=== PATIENT | female | born 1965 | race African-American/Black ===

== ENCOUNTER 2016-12-11 14:04 | Observation (INO) | payer OTHER ==
[~2016-12-11] VITALS: Ht 167.6 cm; Wt 65.0 kg
[~2016-12-11 14:04] MED LIST: FERR324T4 PO; HYDR10SO PO; NORE1TAB60 PO
[2016-12-11 14:06] VITALS: BP 182/87; PULSE 95; RESP 20; TEMP 98.1; O2SAT 99
[2016-12-11] MEDS ORDERED: FERR325T PO (14:42)
[2016-12-11] MEDS ORDERED: DOXY1CAP74 PO (14:42)
[2016-12-11] MEDS ORDERED: SODIUM CHLOR 0.9% 1000 ML INJ 1,000 ML IV SCH (14:56)
[2016-12-11] MEDS ORDERED: SODIUM CHLORIDE 0.9% FLUSH 5 ML FLUSH IVF PRN (15:00)
[2016-12-11 15:38] LABS: AUTOMATED NEUTROPHIL # 10.9 TH/MM3 (1.8-7.7); BASOPHIL # 0.1 TH/MM3 (0-0.2); BASOPHIL % 0.7 % (0.0-2.0); EOSINOPHIL # 0.3 TH/MM3 (0-0.4); EOSINOPHIL % 2.2 % (0.0-4.0); HEMATOCRIT 29.3 % (35.0-46.0); LYMPH % 15.2 % (9.0-44.0); LYMPHOCYTE # 2.1 TH/MM3 (1.0-4.8); MEAN CELL VOLUME 75.5 FL (80.0-100.0); MEAN CORPUSCULAR HEMOGLOBIN 21.9 PG (27.0-34.0); MONO % 3.9 % (0.0-8.0); PLATELET COUNT 421 TH/MM3 (150-450); RED BLOOD COUNT 3.88 MIL/MM3 (4.00-5.30); RED CELL DISTRIBUTION WIDTH 22.2 % (11.6-17.2); WHITE BLOOD COUNT 13.9 TH/MM3 (4.0-11.0)
[2016-12-11 15:41] LABS: HEMO FLAGS AUTO DIFF
[2016-12-11 16:02] LABS: APTT (PATIENT) 24.9 SEC (24.3-30.1); INTERNATIONAL NORMALIZED RATIO 0.9 RATIO; PROTHROMBIN TIME - PATIENT 10.1 SEC (9.8-11.6)
[2016-12-11 16:03] LABS: ANION GAP 8 MEQ/L (5-15); BICARBONATE 22.7 MEQ/L (21.0-32.0); BLOOD UREA NITROGEN 9 MG/DL (7-18); CHLORIDE 107 MEQ/L (98-107); GLOMERULAR FILTRATION RATE 85 ML/MIN (>89); POTASSIUM 3.2 MEQ/L (3.5-5.1); SODIUM (NA) 138 MEQ/L (136-145)
[2016-12-11 16:06] LABS: ALKALINE PHOSPHATASE 60 U/L (45-117); ALT (GPT) 12 U/L (10-53); AST (GOT) 17 U/L (15-37); TOTAL BILIRUBIN ADULT 0.2 MG/DL (0.2-1.0)
[2016-12-11 16:25] LABS: PLATELET ESTIMATE SMEAR HIGH (NORMAL); PLATELET MORPHOLOGY NORMAL (NORMAL); SCAN/DIFF AUTO DIFF CONFIRMED
[2016-12-11 16:41] LABS: BLOOD, URINE MOD (NEG); COMMENT (UR) CULT NOT INDICATED; CULTURE IF INDICATED CULT NOT INDICATED; GLUCOSE,URINE NEG (NEG); KETONE, URINE 10 mg/dL (NEG); MUCUS URINE FEW /lpf (OCC); NITRITE,URINE NEG (NEG); PH, URINE 5.5 (5.0-8.5)
[2016-12-11 16:45] LABS: URINE COLOR RED (YELLW/STRAW)
[2016-12-11] MEDS ORDERED: SODIUM CHLOR 0.9% 1000 ML INJ 1,000 ML IV ONE (18:00)
--- NOTE | 2016-12-11 18:31 | PD ---
HPI Chief Complaint: Bleeding Time Seen by Provider: 14:43 Travel History International Travel<30 days: No Contact w/Intl Traveler<30days: No Traveled to known affect area: No History of Present Illness HPI Patient is a 51-year-old female presents to the emergency department for complaints of vaginal bleeding as well as dizziness and weakness. Patient states that having bleeding for at least the past week which is been fairly heavy. She is followed intermittently with Dr. Brennan in the past and states that she did receive a letter from him saying she was given be discharged in the practice and she is upset about because apparently she missed an appointment because she was in the hospital. In saturating 6-8 pads per day. She does have a history of being admitted to this hospital in the past for hemoglobin before requiring transfusions. She also has a history of uterine fibroids which are quite sizable. She denies any abdominal pain nausea vomiting diarrhea dysuria. States symptoms gradually worsening. She has had a Depo-Provera shot at home which is not working. [facility] Past Medical History Anemia: Yes Anxiety: No Depression: Yes Cancer: No Cardiovascular Problems: No Diminished Hearing: No Endocrine: No Genitourinary: No Musculoskeletal: Yes Neurologic: No Psychiatric: No Reproductive: No Respiratory: No Tetanus Vaccination: > 5 Years ?: Not LMP: : 4 Para: 4 Miscarriage: 0 : 0 Tubal Ligation: Yes Past Surgical History Gynecologic Surgery: Yes (TUBAL) Other Surgery: Yes (SKULL/HEAD SX) Social History Alcohol Use: No Tobacco Use: No Substance Use: No Allergies-Medications (Allergen,Severity, Reaction): Coded Allergies: Morphine (Verified Allergy, Severe, 12/11/16) Reported Meds & Prescriptions Reported Meds & Active Scripts Active Reported Doxycycline 40 Mg Cap 100 Mg PO BID Ferrous Sulfate 325 Mg Tab 325 Mg PO DAILY Review of Systems Except as stated in HPI: all other systems reviewed are Neg Physical Exam Narrative GENERAL: Well-developed well-nourished in no apparent distress SKIN: Warm and dry. HEAD: Atraumatic. Normocephalic. EYES: Pupils equal and round. No scleral icterus. No injection or drainage. There is some conjunctival pallor. ENT: No nasal bleeding or discharge. Mucous membranes pink and moist. NECK: Trachea midline. No JVD. CARDIOVASCULAR: Regular rate and rhythm. No murmur appreciated. RESPIRATORY: No accessory muscle use. Clear to auscultation. Breath sounds equal bilaterally. GASTROINTESTINAL: Abdomen soft, non-tender, nondistended. Hepatic and splenic margins not palpable. Genitourinary: Exam was performed with female nurse marine driller in the room at all times, patient has mild vaginal bleeding from the cervix with some blood pooling in the posterior fornix. No clots. Grossly normal external female genitalia. There is significant fullness on the adnexa and uterus primarily on the right side uterus consistent with an approximately 20 week gestation. MUSCULOSKELETAL: No obvious deformities. No clubbing. No cyanosis. No edema. NEUROLOGICAL: Awake and alert. No obvious cranial nerve deficits. Motor grossly within normal limits. Normal speech. PSYCHIATRIC: Appropriate mood and affect; insight and judgment normal. Data Data Last Documented VS Vital Signs Date Time Temp Pulse Resp B/P Pulse Ox O2 Delivery O2 Flow Rate FiO2 12/11/16 14:06 98.1 95 20 182/87 99 Room Air Orders Complete Blood Count With Diff (12/11/16 14:56) Comprehensive Metabolic Panel (12/11/16 14:56) Prothrombin Time / Inr (Pt) (12/11/16 14:56) Act Partial Throm Time (Ptt) (12/11/16 14:56) Urinalysis - C+S If Indicated (12/11/16 14:56) Iv Access Insert/Monitor (12/11/16 14:56) Ecg Monitoring (12/11/16 14:56) Oximetry (12/11/16 14:56) Sodium Chlor 0.9% 1000 Ml Inj (Ns 1000 M (12/11/16 14:56) Sodium Chloride 0.9% Flush (Ns Flush) (12/11/16 15:00) Ed Urine Pregnancytest Poc (12/11/16 14:56) Type And Screen (12/11/16 17:58) Sodium Chlor 0.9% 1000 Ml Inj (Ns 1000 M (12/11/16 18:00) Consult Gynecology (12/11/16 ) Admit Order (Ed Use Only) (12/11/16 ) Red Blood Cells (Rbc) (12/11/16 18:18) Labs Laboratory Tests Test 12/11/16 12/11/16 12/11/16 15:15 15:35 18:18 White Blood Count 13.9 TH/MM3 Red Blood Count 3.88 MIL/MM3 Hemoglobin 8.5 GM/DL Hematocrit 29.3 % Mean Corpuscular Volume 75.5 FL Mean Corpuscular Hemoglobin 21.9 PG Mean Corpuscular Hemoglobin 29.0 % Concent Red Cell Distribution Width 22.2 % Platelet Count 421 TH/MM3 Mean Platelet Volume 8.7 FL Neutrophils (%) (Auto) 78.0 % Lymphocytes (%) (Auto) 15.2 % Monocytes (%) (Auto) 3.9 % Eosinophils (%) (Auto) 2.2 % Basophils (%) (Auto) 0.7 % Neutrophils # (Auto) 10.9 TH/MM3 Lymphocytes # (Auto) 2.1 TH/MM3 Monocytes # (Auto) 0.5 TH/MM3 Eosinophils # (Auto) 0.3 TH/MM3 Basophils # (Auto) 0.1 TH/MM3 CBC Comment AUTO DIFF Differential Comment AUTO DIFF CONFIRMED Platelet Estimate HIGH Platelet Morphology Comment NORMAL Prothrombin Time 10.1 SEC Prothromb Time International 0.9 RATIO Ratio Activated Partial 24.9 SEC Thromboplast Time Sodium Level 138 MEQ/L Potassium Level 3.2 MEQ/L Chloride Level 107 MEQ/L Carbon Dioxide Level 22.7 MEQ/L Anion Gap 8 MEQ/L Blood Urea Nitrogen 9 MG/DL Creatinine 0.86 MG/DL Estimat Glomerular Filtration 85 ML/MIN Rate Random Glucose 85 MG/DL Calcium Level 8.4 MG/DL Total Bilirubin 0.2 MG/DL Aspartate Amino Transf 17 U/L (AST/SGOT) Alanine Aminotransferase 12 U/L (ALT/SGPT) Alkaline Phosphatase 60 U/L Total Protein 8.0 GM/DL Albumin 3.4 GM/DL Urine Color RED Urine Turbidity CLEAR Urine pH 5.5 Urine Specific Weldon 1.024 Urine Protein 30 mg/dL Urine Glucose (UA) NEG mg/dL Urine Ketones 10 mg/dL Urine Occult Blood MOD Urine Nitrite NEG Urine Bilirubin NEG Urine Urobilinogen LESS THAN 2.0 MG/DL Urine Leukocyte Esterase SMALL Urine RBC /hpf Urine WBC 6 /hpf Urine Mucus FEW /lpf Microscopic Urinalysis Comment CULT NOT INDICATED Blood Type O POSITIVE MDM Medical Decision Making Medical Screen Exam Complete: Yes Emergency Medical Condition: Yes Differential Diagnosis Anemia, vaginal bleeding, dysfunctional uterine bleeding, uterine fibroids, . Narrative Course Patient 51-year-old female was from the emergency department, she was given a liter normal saline by bolus. After this bolus finished went in to do her pelvic exam and patient stood upon standing her heart rate went to 125 she was able to remove her urine and there is some blood running down her leg. Pelvic exam as described above. She did feel somewhat dizzy when she stood up approaching presyncope. He discussed with the patient that given this level of tachycardia after a liter fluid is recommended she stay and also for observation for serial hemoglobin trending. Initially was discussed with [facility] hospitalist organic extractions technician who thought the patient would be better served by being managed by her [employer] service. The hospitalist organic extractions technician called Dr. Jessica gandara who was gracious enough to place admission orders and recommended we call Dr. Burgess who is organic extractions technician for her group tonight. Dr. Reveles is right at the bedside and examined patient and agrees with observation status at this time. Further management by her. Diagnosis Primary Impression: Fibroid (bleeding) (uterine) Qualified Code: D25.9 - Uterine leiomyoma, unspecified location Additional Impression: Anemia Qualified Code: D50.0 - Iron deficiency anemia due to chronic blood loss Admitting Information Admitting Physician Requests: Observation Condition: Stable Mando Lu MD Dec 11, 2016 18:31
[2016-12-11] MEDS ORDERED: diphenhydrAMINE HCL 25 MG CAP PO PRN (19:45)
[2016-12-11] MEDS ORDERED: ESTROGENS CONJUGATED 25 MG/5 ML VIAL IV PUSH ONE (19:45)
[2016-12-11] MEDS ORDERED: ONDANSETRON ODT 4 MG TAB PO PRN (19:45)
[2016-12-11] MEDS ORDERED: SODIUM CHLORIDE 0.9% FLUSH 5 ML FLUSH FLUSH PRN (19:45)
[2016-12-11] MEDS ORDERED: POTASSIUM CHLORIDE 8 MEQ CONTROLLED RELEASE TAB PO ONE (19:45)
[2016-12-11] MEDS ORDERED: ONDANSETRON HCL 4 MG/2 ML VIAL IVP PRN (19:45)
--- NOTE | 2016-12-11 20:00 | HHI.HP ---
HPI Chief Complaint Heavy vaginal bleeding Date Seen: Dec 11, 2016 Travel History International Travel<30 Days: No Contact w/Intl Traveler<30Days: No Known Affected Area: No History of Present Illness HPI 51 yo with known history of fibroid uterus, menorrhagia, and anemia presents to ED with 4 day history of heavy vagina bleeding. She was diagnosed with fibroids in 2011. She was last admitted to this hospital in July 2016 with hgb of 4; required multiple blood transfusions. She subsequently has seen several gynecologists. She stopped seeing Dr. Granados and established with Dr. Owen this month. She was taking 3 ocp at a time to stop heavy bleeding. He asked her to discontinue medication and suggested DMPA until she has surgery; she received first dose on 12/07/16. She is scheduled for surgery, CROW in mid December. She was seen at [facility] on Tuesday for heavy bleeding but did not receive any treatment. She states that over the last 4 days, she has been soaking through super pads every 1-2 hours. She feels fatigued; + HF/NS x 2 years. Denies sob, exertional dyspnea, palpitations or feeling dizzy. She is concerned about how heavy her bleeding is and for potential need for transfusion. Would like to have surgery sooner than later. While being in the ER the last 6 hours, she has changed pad 3 times. Para: 4 : 3 Miscarriage: 0 : 0 History Past Medical History Narrative Medical anemia, h/o blood transfusion in 2011 and 07/2016 fibroid uterus Obstetric History Obstetric History 3 ftsvd, 1 Past Surgical History Narrative Surgical BTL, skull fracture repair Family History Narrative Family History Mother MS. grandmother possible uterine cancer Social History Narrative Social History works at [employer]; also does lawn care and housekeeping Alcohol Use: No Tobacco Use: No Substance Abuse: No Allergies-Medications (Allergen,Severity, Reaction): Coded Allergies: Morphine (Verified Allergy, Severe, 12/11/16) Home Meds Reported Medications Doxycycline 40 Mg [id number] Mg PO BID Ref 0 12/11/16 Ferrous Sulfate 325 Mg [id number] Mg PO DAILY #30 TAB Ref 0 12/11/16 Review of Systems General / Constitutional: Other (fatigue), No: Fever, Weight Gain, Weight Loss , Chills Eyes: No: Diploplia, Blurred Vision, Visual changes, Pain, Photophobia, Other HENT: No: Headaches, Vertigo, Dental Difficulties, Lightheadedness, Other Cardiovascular: No: Irregular Rhythm, Chest Pain or Discomfort, Palpitations, Tachycardia, Syncope, Varicosities, Edema, Cyanosis, Other Respiratory: No: Cough, Short of Breath, Wheezing, Other Gastrointestinal: No: Nausea, Vomiting, Diarrhea, Abdominal Pain, Hematemesis, Hematochezia, Constipation, Changes in Bowel Habits, Indigestion, Loss of Appetite, Other Genitourinary: Frequency Musculoskeletal: No: Limited ROM, Weakness, Cramping, Edema, Pain, Other Skin: No Rash, No Itching, No Dryness, No Lumps, No Change in Pigmentation, No Change in Nails, No Alopecia, No Lesions, No Breast Lumps, No Breast Tenderness , No Breast Swelling, No Other Neurologic: No: Weakness, Dizziness, Syncope, Focal Abnormalities, Coordination Problem, Headache, Slurred Speech, Seizures, Other Psychiatric: No: Anxiety, Depression, Suicidal Ideations, Disorder of Thought, Mood Disorder, Substance Abuse, Homicidal Ideation, Other Endocrine: Heat Intolerance Hematologic/Lymphatic: No Easy Bruising, No Lymph Node Enlargement, No Other Physical Exam Narrative GENERAL: Thin AA female well-developed patient. SKIN: Warm and dry. HEAD: Normocephalic and atraumatic. EYES: No scleral icterus. No injection or drainage. ENT: No nasal drainage noted. Mucous membranes pink. Airway patent. NECK: Supple, trachea midline. No JVD. CARDIOVASCULAR: Regular rhythm without murmurs, gallops, or rubs. RESPIRATORY: Breath sounds equal bilaterally. No accessory muscle use. ABDOMEN/GI: Abdomen soft, non-tender, bowel sounds present, no rebound, no guarding UTerus 24 wk size, irreg contour, 10 cm wide GENITOURINARY: nl ext female genitalia, large pad half soaked, no active bleeding. EXTREMITIES: No cyanosis or edema. BACK: Nontender without obvious deformity. No CVA tenderness. NEUROLOGICAL: Awake and alert. Motor and sensory grossly within normal limits. Five out of 5 muscle strength in all muscle groups. Normal speech. Data Data Vital Signs Reviewed: Yes Orders Complete Blood Count With Diff (12/11/16 14:56) Comprehensive Metabolic Panel (12/11/16 14:56) Prothrombin Time / Inr (Pt) (12/11/16 14:56) Act Partial Throm Time (Ptt) (12/11/16 14:56) Urinalysis - C+S If Indicated (12/11/16 14:56) Iv Access Insert/Monitor (12/11/16 14:56) Ecg Monitoring (12/11/16 14:56) Oximetry (12/11/16 14:56) Sodium Chlor 0.9% 1000 Ml Inj (Ns 1000 M (12/11/16 14:56) Sodium Chloride 0.9% Flush (Ns Flush) (12/11/16 15:00) Ed Urine Pregnancytest Poc (12/11/16 14:56) Type And Screen (12/11/16 17:58) Sodium Chlor 0.9% 1000 Ml Inj (Ns 1000 M (12/11/16 18:00) Consult Gynecology (12/11/16 ) Admit Order (Ed Use Only) (12/11/16 ) (Hub Use Only)Inp Phy Cons/Ref (12/11/16 ) Red Blood Cells (Rbc) (12/11/16 18:18) Place In Observation (12/11/16 ) Code Status (12/11/16 19:31) Vital Signs (Adult) Q4H (12/11/16 19:31) Activity Oob Ad Jackie (12/11/16 19:31) Diet Regular Basic (12/12/16 Breakfast) Lactated Ringer's Inj (Lr Inj) (12/11/16 19:31) Sodium Chloride 5 Ml Flush (Sodium Chlo (12/11/16 19:45) Sodium Chloride 5 Ml Flush (Sodium Chlo (12/11/16 21:00) Ibuprofen 600 Mg Tab (Motrin 600 Mg Tab) (12/11/16 19:45) Diphenhydramine 25 Mg Cap (Benadryl 25 M (12/11/16 19:45) Ondansetron 4 Mg Odt Tab (Zofran 4 Mg Od (12/11/16 19:45) Ondansetron Inj (Zofran Inj) (12/11/16 19:45) Complete Blood Count With Diff (12/12/16 06:00) Potassium, Serum (K) (12/12/16 06:00) Juan Bilateral/Knee High CASSANDRA.QSHIFT (12/11/16 19:31) Estrogens Conjugated Inj (Premarin Inj) (12/11/16 19:45) Estrogens Conjugated Inj (Premarin Inj) (12/11/16 19:45) Potassium Chloride (Kcl) (12/11/16 19:45) Labs Laboratory Tests Test 12/11/16 12/11/16 15:15 15:35 White Blood Count 13.9 Red Blood Count 3.88 Hemoglobin 8.5 Hematocrit 29.3 Mean Corpuscular Volume 75.5 Mean Corpuscular Hemoglobin 21.9 Mean Corpuscular Hemoglobin 29.0 Concent Red Cell Distribution Width 22.2 Platelet Count 421 Mean Platelet Volume 8.7 Neutrophils (%) (Auto) 78.0 Lymphocytes (%) (Auto) 15.2 Monocytes (%) (Auto) 3.9 Eosinophils (%) (Auto) 2.2 Basophils (%) (Auto) 0.7 Neutrophils # (Auto) 10.9 Lymphocytes # (Auto) 2.1 Monocytes # (Auto) 0.5 Eosinophils # (Auto) 0.3 Basophils # (Auto) 0.1 CBC Comment AUTO DIFF Differential Comment AUTO DIFF CONFIRMED Platelet Estimate HIGH Platelet Morphology Comment NORMAL Prothrombin Time 10.1 Prothromb Time International 0.9 Ratio Activated Partial 24.9 Thromboplast Time Sodium Level 138 Potassium Level 3.2 Chloride Level 107 Carbon Dioxide Level 22.7 Anion Gap 8 Blood Urea Nitrogen 9 Creatinine 0.86 Estimat Glomerular Filtration 85 Rate Random Glucose 85 Calcium Level 8.4 Total Bilirubin 0.2 Aspartate Amino Transf 17 (AST/SGOT) Alanine Aminotransferase 12 (ALT/SGPT) Alkaline Phosphatase 60 Total Protein 8.0 Albumin 3.4 Urine Color RED Urine Turbidity CLEAR Urine pH 5.5 Urine Specific Steger 1.024 Urine Protein 30 Urine Glucose (UA) NEG Urine Ketones 10 Urine Occult Blood MOD Urine Nitrite NEG Urine Bilirubin NEG Urine Urobilinogen LESS THAN 2.0 Urine Leukocyte Esterase SMALL Urine RBC Urine WBC 6 Urine Mucus FEW Microscopic Urinalysis Comment CULT NOT INDICATED Assessment/Plan Problem List: (1) Fibroid (bleeding) (uterine) (2) Menorrhagia (3) Anemia (4) Hypokalemia Assessment and Plan This is a pt of Dr. Owen, she is a 56 yo with symptomatic enlarged fibroid uterus. She has had heavy bleeding x 4 d. Hgb 8.5. She will be admitted for observation. Discussed various treatment options including iv estrogen, amicar and lysteda. She has had good results from multiple ocp in the past, and has elected to start on IV estrogen, will administer x 24 hours. She does not need transfusion presently, will recheck cbc in the am. Hypokalemia- will replace po Elisa Burgess MD Dec 11, 2016 20:00
[2016-12-11] MEDS: SODIUM CHLORIDE 0.9% FLUSH 5 ML FLUSH FLUSH SCH (21:00)
[2016-12-11 21:07] LABS: MEAN CORPUSCULAR HGB CONC 29.8 % (32.0-36.0)
[2016-12-11] MEDS: LACTATED RINGER'S 1000 ML INJ 1,000 ML IV SCH (21:08)
[2016-12-11 21:40] VITALS: BP 159/87; PULSE 97; RESP 20; TEMP 97.6; O2SAT 100
[2016-12-11] MEDS: ESTROGENS CONJUGATED 25 MG/5 ML VIAL IV PUSH PRN (22:48)
[2016-12-12] VITALS (10 sets, daily range): BP systolic 117–158; BP diastolic 63–88; PULSE 81–103; RESP 18–20; TEMP 97.4–99.4; O2SAT 96–100
[2016-12-12] MEDS: LACTATED RINGER'S 1000 ML INJ 1,000 ML IV SCH ×3 (04:08→19:31)
[2016-12-12] MEDS: IBUPROFEN 600 MG TAB PO PRN ×2 (04:08→19:10)
[2016-12-12] MEDS: SODIUM CHLORIDE 0.9% FLUSH 5 ML FLUSH FLUSH SCH ×2 (07:46→20:48)
[2016-12-12 08:37] LABS: AUTOMATED NEUTROPHIL # 7.4 TH/MM3 (1.8-7.7); BASOPHIL # 0.1 TH/MM3 (0-0.2); BASOPHIL % 1.2 % (0.0-2.0); EOSINOPHIL # 0.4 TH/MM3 (0-0.4); HEMATOCRIT 21.5 % (35.0-46.0); LYMPH % 17.8 % (9.0-44.0); LYMPHOCYTE # 1.9 TH/MM3 (1.0-4.8); MEAN CELL VOLUME 73.6 FL (80.0-100.0); MEAN CORPUSCULAR HEMOGLOBIN 21.9 PG (27.0-34.0); MONO % 6.5 % (0.0-8.0); NEUT % 70.5 % (16.0-70.0); PLATELET COUNT 312 TH/MM3 (150-450); RED BLOOD COUNT 2.92 MIL/MM3 (4.00-5.30); WHITE BLOOD COUNT 10.4 TH/MM3 (4.0-11.0)
[2016-12-12 08:40] LABS: HEMO FLAGS AUTO DIFF
[2016-12-12 09:57] LABS: OVALOCYTES 1+ (NORMAL); SCAN/DIFF AUTO DIFF CONFIRMED; TEARDROP RBCS 1+ (NORMAL)
[2016-12-12] MEDS ORDERED: SODIUM CHLOR 0.9% 1000 ML INJ 1,000 ML IV SCH (10:00)
[2016-12-12] MEDS ORDERED: ESTR1.25 PO (12:56)
--- NOTE | 2016-12-12 12:56 | HHI.DCPOC ---
Discharge Care Plan Diagnosis: (1) Menorrhagia (2) Fibroid (bleeding) (uterine) (3) Anemia Your Health Problems Are: Vaginal bleeding Report Symptoms to Your Doctor -Temperate above 100.5 degrees -Redness, of incision or excessive or foul smelling drainage -Unusual pain or calf pain -Increased vaginal bleeding -Painful or difficulty urinating -Feelings of extreme sadness or anxiety after 2 weeks Goals to Promote Your Health * To prevent worsening of your condition and complications * To maintain your health at the optimal level Directions to Meet Your Goals Take your medications as prescribed Follow your dietary instruction Follow activity as directed Ensure plenty of rest for recovery Drink fluids for hydration Keep your appointments as scheduled Take your immunizations and boosters as scheduled If your symptoms worsen call your PCP, if no PCP go to Urgent Care Center or Emergency Room Smoking is Dangerous to Your Health. Avoid second hand smoke Call the 24-hour crisis hotline for domestic abuse at Elisa Burgess MD Dec 12, 2016 12:56
[2016-12-12] MEDS ORDERED: FUROSEMIDE 20 MG/2 ML VIAL IV ONE (13:00)
[2016-12-12] MEDS ORDERED: SODIUM CHLOR 0.9% 250 ML INJ 250 ML IV ONE (13:00)
[2016-12-12] MEDS ORDERED: ACETAMINOPHEN 325 MG TAB PO PRN (13:00)
--- NOTE | 2016-12-12 13:01 | HHI.PR ---
BUGGY LOADER Note Note S: Pt feeling much better today. She psychologist educational had minimal bleeding since this morning. She is completing transfusion of 1 u of prbc. Denies feeling dizzy, palpitations. Ambulating without difficulty. Has better energy. O: GENERAL: NAD SKIN: Warm and dry. HEAD: Normocephalic. EYES: No scleral icterus. No injection or drainage. NECK: Supple, trachea midline. No JVD or lymphadenopathy. CARDIOVASCULAR: Regular rate and rhythm without murmurs, gallops, or rubs. RESPIRATORY: Breath sounds equal bilaterally. No accessory muscle use. GASTROINTESTINAL: Abdomen soft, non-tender, nondistended. Uterus irreg contour 24 wk in size, wide : no blood on pad, has had pad over 5 hours MUSCULOSKELETAL: No cyanosis, or edema. BACK: Nontender without obvious deformity. No CVA tenderness. Vital Signs Date Time Temp Pulse Resp B/P Pulse Ox O2 Delivery O2 Flow Rate FiO2 12/12/16 11:59 97.8 99 18 117/67 96 12/12/16 10:19 98.3 103 20 133/82 100 12/12/16 10:00 97.5 103 18 129/86 100 12/12/16 09:51 97.5 103 18 129/86 100 12/12/16 08:07 97.7 92 18 124/63 100 12/12/16 05:10 14 12/12/16 03:57 97.4 81 20 125/73 100 12/12/16 00:39 97.5 81 20 129/86 99 12/11/16 21:40 97.6 97 20 159/87 100 12/11/16 14:06 98.1 95 20 182/87 99 Room Air Laboratory Tests Test 12/11/16 12/11/16 12/11/16 12/12/16 15:15 15:35 18:18 07:24 White Blood Count 13.9 TH/MM3 (4.0-11.0) Red Blood Count 3.88 MIL/MM3 2.92 MIL/MM3 (4.00-5.30) (4.00-5.30) Hemoglobin 8.5 GM/DL 6.4 GM/DL (11.6-15.3) (11.6-15.3) Hematocrit 29.3 % 21.5 % (35.0-46.0) (35.0-46.0) Mean Corpuscular Volume 75.5 FL 73.6 FL (80.0-100.0) (80.0-100.0) Mean Corpuscular Hemoglobin 21.9 PG 21.9 PG (27.0-34.0) (27.0-34.0) Mean Corpuscular Hemoglobin 29.0 % 29.8 % Concent (32.0-36.0) (32.0-36.0) Red Cell Distribution Width 22.2 % 22.0 % (11.6-17.2) (11.6-17.2) Neutrophils (%) (Auto) 78.0 % 70.5 % (16.0-70.0) (16.0-70.0) Neutrophils # (Auto) 10.9 TH/MM3 (1.8-7.7) Platelet Estimate HIGH (NORMAL) Potassium Level 3.2 MEQ/L (3.5-5.1) Estimat Glomerular Filtration 85 ML/MIN (>89) Rate Calcium Level 8.4 MG/DL (8.5-10.1) Urine Color RED (YELLW/STRAW) Urine Protein 30 mg/dL (NEG-TRACE) Urine Ketones 10 mg/dL (NEG) Urine Occult Blood MOD (NEG) Urine Leukocyte Esterase SMALL (NEG) Urine WBC 6 /hpf (0-5) Urine Mucus FEW /lpf (OCC) Antibody Screen POSITIVE Tear Drop Cells 1+ (NORMAL) Ovalocytes 1+ (NORMAL) A/P:56 yo with symptomatic enlarged fibroid uterus, admitted for observation. 1) Menorrhagia/fibroid uterus- bleeding has ceased after iv infusion of premarin overnight. Will send home with Premarin 2.5mg bid x 7 days. Discussed risk of DVT on estrogen, discussed warning signs and need to f/u in ED for these signs or heavy bleeding. She is scheduled for CROW with Dr. Owen next month, encouraged to f/u in office this week. PT states she does not have money , will discuss with case management if we can help pt obtain medication. 2) Anemia- hb dropped from 8/5 to 6.4, likely partly dilutional as she received 2L fluid bolus in ED followed by maintenance fluids. She is finishing 1 unit of blood, and has agreed to receive a second unit to ensure that she is at a safe level prior to surgery. Will recheck hgb post transfusion and d/c home if ~8. She has had heavy bleeding x 4 d. Hgb 8.5. 3)Hypokalemia-resolved Dispo- likely home today. Elisa Burgess MD Dec 12, 2016 13:01
[2016-12-12] MEDS: ESTROGENS CONJUGATED 25 MG/5 ML VIAL IV PUSH PRN (17:15)
[2016-12-12 22:39] LABS: HEMATOCRIT 31.8 % (35.0-46.0)
[2016-12-13 00:58] VITALS: BP 147/95; PULSE 82; RESP 20; TEMP 98.1; O2SAT 100
[2016-12-13 05:27] VITALS: BP 138/92; PULSE 82; RESP 20; TEMP 98; O2SAT 100
[2016-12-22] MEDS ORDERED: HYDR-3535 PO ×2 (13:10)
== END 2016-12-13 06:22 | disposition home or self-care (01) ==
LOC: NEPC 14:04 → NEDA 18:34 → INTOOBSV 18:34 → NEPHCDU 21:35
PROVIDERS: ADMIT Obstetrics & Gynecology; ATTEND Obstetrics & Gynecology
DX: N92.0 Excessive and frequent menstruation with regular cycle (principal); D25.9 Leiomyoma of uterus, unspecified; D64.9 Anemia, unspecified; E87.6 Hypokalemia
CPT/HCPCS: 36430; 80053; 81001; 84132; 85014; 85018; 85025; 85610; 85730; 86077; 86850; 86870; 86900; 86901; 86902; 86920; 86922; 96360; 96361; 99285; G0378; J1410; J1940; J7030; J7050; J7120; P9016

== ENCOUNTER 2016-12-21 12:05 | Inpatient (IN) | payer OTHER ==
[~2016-12-21] VITALS: Ht 167.6 cm; Wt 65.0 kg
[~2016-12-21 12:05] MED LIST changes: +DOXY1CAP74 PO; +ESTR1.25 PO; -FERR324T4 PO; +FERR325T PO; -HYDR10SO PO; -NORE1TAB60 PO
[2016-12-22] MEDS ORDERED: HYDR-3535 PO (13:10)
[2016-12-27] MEDS ORDERED: MIDAZOLAM HCL 2 MG/2 ML VIAL IV PRN (06:15)
[2016-12-27] MEDS ORDERED: ONDANSETRON HCL 4 MG/2 ML VIAL IV PUSH PRN ×2 (06:15→09:30)
[2016-12-27] MEDS ORDERED: ceFAZolin 1,000 MG/NS 100 ML IV SCH ×2 (06:15)
[2016-12-27 06:27] VITALS: BP 174/96; PULSE 83; RESP 20; TEMP 98.2; O2SAT 100
[2016-12-27] MEDS ORDERED: INSULIN HUMAN REGULAR 1,000 UNITS/10 ML VIAL SQ PRN (06:30)
[2016-12-27] MEDS: LACTATED RINGER'S 1000 ML IV SCH (06:30)
[2016-12-27] MEDS ORDERED: METOPROLOL TARTRATE 25 MG TAB PO PRN (06:30)
[2016-12-27] MEDS ORDERED: SODIUM CHLORID 0.9% 500 ML IV SCH (06:30)
[2016-12-27] MEDS ORDERED: FAMOTIDINE 20 MG/2 ML VIAL ONE (07:31)
[2016-12-27] MEDS ORDERED: MIDAZOLAM HCL 2 MG/2 ML VIAL ONE (07:31)
[2016-12-27] MEDS ORDERED: fentaNYL CITRATE 250 MCG/5 ML AMP ONE (07:31)
[2016-12-27] MEDS ORDERED: DICLOFENAC SODIUM 37.5 MG/ML VIAL IV PUSH ONE (07:32)
[2016-12-27] MEDS ORDERED: HYDROmorphone HCL PF 2 MG/ML VIAL ONE (07:32)
[2016-12-27] MEDS ORDERED: ACETAMINOPHEN 1000 MG/100 ML VIAL IV ONE (07:32)
[2016-12-27] MEDS ORDERED: DOCUSATE SODIUM 100 MG CAP PO PRN (09:30)
[2016-12-27] MEDS ORDERED: NALOXONE HCL 0.4 MG/ML AMP IV PRN (09:30)
[2016-12-27] MEDS ORDERED: PROMETHAZINE INJ 25 MG/ML VIAL IM PRN (09:30)
[2016-12-27] MEDS ORDERED: HYDROmorphone HCL PCA 6 MG/30 ML IV SCH (09:30)
[2016-12-27] MEDS ORDERED: ZOLPIDEM TARTRATE 5 MG TAB PO PRN (09:30)
[2016-12-27] MEDS ORDERED: diphenhydrAMINE HCL 50 MG/ML VIAL IV PRN (09:30)
[2016-12-27] MEDS: LACTATED RINGER'S 1000 ML INJ 1,000 ML IV SCH ×2 (09:40→17:17)
[2016-12-27] MEDS ORDERED: *HYDROmorphone PF 1 MG VIAL PERIprocedural Use ONLY ONE (09:59)
[2016-12-27] MEDS ORDERED: DO NOT ADM ANY ANTICOAGULANT DRUGS XX PRN (10:15)
[2016-12-27] MEDS ORDERED: ENALAPRILAT 1.25 MG/ML VIAL ONE (10:52)
[2016-12-27 11:40] VITALS: BP 140/85; PULSE 84; RESP 16; TEMP 96.7; O2SAT 100
[2016-12-27] MEDS ORDERED: ONDANSETRON HCL 4 MG/2 ML VIAL IV PUSH ONE (12:00)
[2016-12-27] MEDS ORDERED: LACTATED RINGER'S 1000 ML INJ 1,000 ML IV ONE (12:00)
[2016-12-27] MEDS ORDERED: NEOSTIGMINE 3 MG/3 ML SYR IV ONE ×2 (12:00)
[2016-12-27] MEDS ORDERED: PROPOFOL 200 MG/20 ML AMP IV ONE (12:00)
[2016-12-27] MEDS: KETOROLAC TROMETHAMINE 30 MG/ML (IVP) VIAL IV PUSH SCH ×3 (12:01→23:48)
[2016-12-27] MEDS: PCA - TOTAL MG DILAUDID DELIVERED PER SHIFT OTHER SCH ×2 (14:00→22:00)
[2016-12-27 15:50] VITALS: BP 136/77; PULSE 76; RESP 16; TEMP 96.4; O2SAT 100
[2016-12-27 20:00] VITALS: BP 132/85; PULSE 71; RESP 18; TEMP 97.8; O2SAT 100
[2016-12-27] MEDS: SODIUM CHLORIDE 0.9% FLUSH 5 ML FLUSH IVF SCH (20:31)
[2016-12-27] MEDS: SODIUM CHLORIDE 0.9% FLUSH 5 ML FLUSH IVF PRN (23:48)
[2016-12-28] VITALS: BP 136/90; PULSE 78; RESP 18; TEMP 97.6; O2SAT 99
[2016-12-28] MEDS: LACTATED RINGER'S 1000 ML INJ 1,000 ML IV SCH ×4 (01:47→22:11)
[2016-12-28] MEDS: LACTATED RINGER'S 1000 ML IV SCH ×2 (02:00→22:11)
[2016-12-28 04:00] VITALS: BP 149/83; PULSE 75; RESP 18; TEMP 98.8; O2SAT 100
[2016-12-28] MEDS: KETOROLAC TROMETHAMINE 30 MG/ML (IVP) VIAL IV PUSH SCH (05:23)
[2016-12-28] MEDS: SODIUM CHLORIDE 0.9% FLUSH 5 ML FLUSH IVF PRN (05:24)
[2016-12-28] MEDS: PCA - TOTAL MG DILAUDID DELIVERED PER SHIFT OTHER SCH ×4 (05:30→22:11)
[2016-12-28 05:54] LABS: AUTOMATED NEUTROPHIL # 11.1 TH/MM3 (1.8-7.7); BASOPHIL # 0.1 TH/MM3 (0-0.2); BASOPHIL % 0.5 % (0.0-2.0); EOSINOPHIL # 0.1 TH/MM3 (0-0.4); EOSINOPHIL % 0.9 % (0.0-4.0); HEMATOCRIT 30.7 % (35.0-46.0); LYMPH % 10.1 % (9.0-44.0); LYMPHOCYTE # 1.4 TH/MM3 (1.0-4.8); MEAN CELL VOLUME 75.4 FL (80.0-100.0); MEAN CORPUSCULAR HEMOGLOBIN 23.4 PG (27.0-34.0); MEAN CORPUSCULAR HGB CONC 31.1 % (32.0-36.0); MONO % 6.1 % (0.0-8.0); NEUT % 82.4 % (16.0-70.0); PLATELET COUNT 299 TH/MM3 (150-450); RED BLOOD COUNT 4.08 MIL/MM3 (4.00-5.30); RED CELL DISTRIBUTION WIDTH 18.5 % (11.6-17.2); WHITE BLOOD COUNT 13.4 TH/MM3 (4.0-11.0)
[2016-12-28 05:58] LABS: HEMO FLAGS AUTO DIFF
[2016-12-28 07:22] LABS: KERATOCYTES OCC (NORMAL); PLATELET ESTIMATE SMEAR NORMAL (NORMAL); PLATELET MORPHOLOGY ENLARGED (NORMAL); SCAN/DIFF AUTO DIFF CONFIRMED
[2016-12-28 08:00] VITALS: BP 151/89; PULSE 73; RESP 16; TEMP 99.2; O2SAT 98
[2016-12-28] MEDS: SODIUM CHLORIDE 0.9% FLUSH 5 ML FLUSH IVF SCH ×2 (09:55→20:08)
--- NOTE | 2016-12-28 11:54 | MP ---
cc: HAIM ALLEN DATE OF SURGERY 12/27/2016 PREOPERATIVE DIAGNOSIS Leiomyomata uteri, menorrhagia and anemia. POSTOPERATIVE DIAGNOSIS Leiomyomata uteri, menorrhagia and anemia. PROCEDURE Total abdominal hysterectomy. SURGEON MD Brayden ANESTHESIA General. ESTIMATED BLOOD LOSS 300 cc. COMPLICATIONS None. FINDINGS The patient had a uterus that was approximately 24 weeks' size and had multiple large benign-appearing fibroids present. The fallopian tubes were status post tubal ligation, otherwise unremarkable. The ovaries were normal in appearance. The upper abdominal organs were all normal to palpation. DESCRIPTION OF PROCEDURE The patient was brought to the operating room and following general anesthesia was placed in dorsal supine position. Her vagina, abdomen and perineum were prepped and draped. A Pfannenstiel skin incision was made. The abdomen was opened in layers in the usual fashion. We were able to deliver the uterus through the incision and packed away the bowel with moist sponge laps. The round ligaments were clamped, cut and tied off with 0 Vicryl stitch. The upper broad ligaments were clamped, cut and tied off with 0 Vicryl stitch. The bladder peritoneum was incised and the bladder was sharply dissected off the anterior cervix. The uterine vessels were skeletonized and then clamped, cut and sealed with 0 Vicryl stitch. The cardinal ligaments were clamped, cut and sealed with 0 Vicryl stitch. We then transected the uterus off of the cervix and placed a self-retaining retractor. The uterosacral ligaments then clamped, cut and tied off with 0 Vicryl stitch. The cervix was then amputated off of the vagina. This was done with Riaz scissors. Left and right vaginal cuff angled sutures were placed with 0 Vicryl stitch incorporating the uterosacral ligaments for vaginal vault support. The remaining portion of the vaginal cuff was then closed with a running locking #0 Vicryl stitch. The pelvis was irrigated and good hemostasis was noted at all sites. The tubes were removed by clamping the mesosalpinx with Halina clamps and tying it off with 0 Vicryl stitch. Again good hemostasis was noted and clear urine was seen in the Lynn catheter so all instruments and lap sponges were removed and, with the counts correct, the peritoneum was closed with a 2-0 chromic stitch. The subfascial layer had good hemostasis so the fascia was closed with a 0 PDS stitch. The subcutaneous layer had good hemostasis so the skin was closed with sonia. The patient was then taken to the recovery room in good condition with all counts correct and clear urine draining in her Lynn catheter. MD SHAREE Alas/LISANDRO /9:25 AM /11:48 AM
[2016-12-28 12:00] VITALS: BP 142/86; PULSE 80; RESP 16; TEMP 100; O2SAT 98
[2016-12-28] MEDS: oxyCODONE/ACETAMINOPHEN 5 MG/325 MG TAB PO PRN ×2 (15:18→19:29)
[2016-12-28 16:00] VITALS: BP 138/90; PULSE 95; RESP 16; TEMP 99.7; O2SAT 98
[2016-12-28 20:00] VITALS: BP 158/90; PULSE 60; RESP 18; TEMP 97.2; O2SAT 92
[2016-12-29] VITALS: BP 143/83; PULSE 71; RESP 18; TEMP 97.9; O2SAT 98
[2016-12-29] MEDS: oxyCODONE/ACETAMINOPHEN 5 MG/325 MG TAB PO PRN ×2 (01:31→10:01)
[2016-12-29 04:00] VITALS: BP 155/89; PULSE 78; RESP 18; TEMP 98.7; O2SAT 98
[2016-12-29 08:00] VITALS: BP 130/91; PULSE 75; RESP 16; TEMP 97.4; O2SAT 100
[2016-12-29] MEDS: SODIUM CHLORIDE 0.9% FLUSH 5 ML FLUSH IVF SCH (09:00)
[2016-12-29 12:00] VITALS: BP 144/89; PULSE 76; RESP 16; TEMP 98.3; O2SAT 97
== END 2016-12-29 14:17 | disposition home or self-care (01) | DRG 743 ==
LOC: HSDI 12-27 05:48 → HOCA 12-27 11:24
PROVIDERS: ADMIT Obstetrics & Gynecology; ATTEND Obstetrics & Gynecology
PROC: 0UTC0ZZ Resection of Cervix, Open Approach (ICD-10-PCS; 2016-12-27)
PROC: 0UT70ZZ Resection of Bilateral Fallopian Tubes, Open Approach (ICD-10-PCS; 2016-12-27)
PROC: 0UT90ZZ Resection of Uterus, Open Approach (ICD-10-PCS; principal; 2016-12-27 07:43)
DX: D25.9 Leiomyoma of uterus, unspecified (principal); D64.9 Anemia, unspecified; N92.0 Excessive and frequent menstruation with regular cycle
CPT/HCPCS: 85025; 86077; 86850; 86870; 86900; 86901; 86902; 86920; 86922; 88307; 94150; J0131; J0690; J1130; J1170; J1885; J2250; J2405; J2710; J3010; J7120

== ENCOUNTER → 2016-12-22 | Outpatient (CLI) | payer OTHER ==
[~2016-12-22] MED LIST changes: +HYDR-3535 PO
[2016-12-22 14:01] LABS: HEMATOCRIT 34.6 % (35.0-46.0); MEAN CELL VOLUME 77.3 FL (80.0-100.0); MEAN CORPUSCULAR HEMOGLOBIN 24.1 PG (27.0-34.0); MEAN CORPUSCULAR HGB CONC 31.1 % (32.0-36.0); PLATELET COUNT 543 TH/MM3 (150-450); RED BLOOD COUNT 4.47 MIL/MM3 (4.00-5.30); RED CELL DISTRIBUTION WIDTH 19.8 % (11.6-17.2); WHITE BLOOD COUNT 10.4 TH/MM3 (4.0-11.0)
[2016-12-22 14:05] LABS: REVIEW FLAG FINAL
--- NOTE | 2016-12-24 07:09 | EKG ---
Date Performed: 12/22/2016 Time Performed: 12:59:05 PTAGE: 51 years EKG: Sinus rhythm NORMAL ECG NO PREVIOUS TRACING DOCTOR: Alonso Cota Interpretating Date/Time 12/24/2016 07:06:29
== END ==
LOC: CPRE 12:11
PROVIDERS: ATTEND Obstetrics & Gynecology
DX: Z01.812 Encounter for preprocedural laboratory examination (principal); D25.9 Leiomyoma of uterus, unspecified
CPT/HCPCS: 36415; 84703; 85027; 93005